=== PATIENT | male | born 1985 | race Caucasian/White ===

== ENCOUNTER 2021-03-11 09:22 | Emergency (ER) | payer SELFPAY ==
[2021-03-11 09:28] VITALS: BP 137/93; PULSE 82; RESP 18; TEMP 36.7; O2SAT 100
--- NOTE | 2021-03-11 09:43 | ED.WOUNDLAC ---
HPI - Wound/Laceration General Chief Complaint: Wound/Laceration Stated Complaint: tailbone cyst Time Seen by Provider: 03/11/21 09:28 Source: patient Mode of arrival: ambulatory Limitations: no limitations History of Present Illness HPI narrative: Patient is a 36 year old male who presents with abscess to buttocks. Patient reports a history of infected pilonidal cyst but reports have not had one for years . He reports increased pain and tenderness. He denies drainage. He reports fever last pm and taking ibuprofen with limited relief. He denies chills or body aches. He denies all other complaints at this time. Related Data Allergies Allergy/AdvReac Type Severity Reaction Status Date / Time No Known Allergies Allergy Verified 03/11/21 09:30 Review of Systems Review of Systems: Narrative: CONSTITUTIONAL: Denies fever, chills, or sweats. EYES: Denies visual changes, redness, or discharge. ENT: Denies rhinorrhea, congestion, sore throat, or otalgia. CARDIOVASCULAR: Denies chest pain, palpitations, or edema. RESPIRATORY: Denies cough or dyspnea. GASTROINTESTINAL: Denies abdominal pain, nausea, vomiting, or diarrhea. GENITOURINARY: Denies dysuria or hematuria. SKIN: Abscess to upper buttocks MUSCULOSKELETAL: Denies back pain, joint pain, or myalgia. NEUROLOGIC: Denies headache, numbness, dizziness, or weakness. PSYCHIATRIC: Denies anxiety or depression. [facility] Past Medical History Medical History (Updated 03/11/21 @ 10:46 by HARPREET Khan) Pilonidal abscess Surgical History Surgical History (Updated 03/11/21 @ 09:50 by HARPREET Khan) No significant past surgical history Family History Family History (Updated 03/11/21 @ 09:50 by HARPREET Khan) Other Breast cancer Social History Social History (Updated 03/11/21 @ 09:50 by HARPREET Khan) Smoking status: Current every day smoker Tobacco type: cigarettes Alcohol intake: current Alcohol use details: occasional Substance use: never Living arrangements: with family Occupation/Education: occupation Gender identity (if verbalized by the patient): Male Comments At the time of signature, I have reviewed and agree with nursing past medical, surgical, social, and family history unless otherwise noted. Please see nursing chart for further information. There is no relevant family history pertinent to the presenting complaint. Exam Narrative: Exam Narrative: GENERAL: Well-appearing, well-nourished, and in no acute distress. HEAD: Normocephalic, atraumatic. EYES: EOMI. No redness or drainage. Conjunctiva are normal. ENT: Mucous membranes pink and moist. CHEST: No respiratory distress. Clear to auscultation. HEART: Regular rate and rhythm. No murmur appreciated. Normal peripheral pulses. EXTREMITIES: Normal range of motion. No edema. SKIN: tender, fluctuant mass near top of the cleft. erythema noted, approximately 10 x 6 cm, no drainage noted NEURO: No focal deficits. Alert and oriented x3. Gait steady. PSYCH: Normal affect. No signs of depression or anxiety. Course Vital Signs Vital signs: Vital Signs Temperature 36.7 C 03/11/21 09:28 Pulse Rate 82 03/11/21 09:28 Respiratory Rate 18 03/11/21 09:28 Blood Pressure 137/93 H 03/11/21 09:28 Pulse Oximetry 100 03/11/21 09:28 Temperature 36.7 C 03/11/21 09:28 Pulse Rate 82 03/11/21 09:28 Respiratory Rate 18 03/11/21 09:28 Blood Pressure 137/93 H 03/11/21 09:28 Pulse Oximetry 100 03/11/21 09:28 Procedures Abscess I/D other: Date of Incision: 03/11/21 Time of Incision: 10:31 Sedation/analgesia: none Local Anesthetic: lidocaine 1% Amount of anesthesia used (mL): 9 Technique: incised with #11 blade Amount of fluid expressed (mL): 20 Irrigation: Yes Packing used?: plain I&D Results: Pus Abcess I&D Additional Comments: Pilonidal abscess drained, flushed
[2021-03-11 09:52] LABS: Basophils Absolute Auto 0.1 K/mm3 (0.0-0.1); Basophils Percent Auto 0.4 % (0.2-1.2); Eosinophils Absolute Auto 0.3 K/mm3 (0-0.3); Eosinophils Percent Auto 2.1 % (0-4.4); Hematocrit 44.2 % (42.0-52.0); Hemoglobin 15.2 g/dL (14.0-18.0); Immature Granulocyte Absolute 0.03 K/mm3 (0.00-0.031); Immature Granulocyte Percent A 0.2 % (0-0.5); Lymphocytes Percent Auto 7.5 % (18.3-44.2); Mean Corpuscular HGB Conc 34.4 g/dl (32-36); Mean Corpuscular Hemoglobin 32.4 pg (26-34); Mean Corpuscular Volume 94.2 fl (80-100); Mean Platelet Volume 10.7 fl (7.4-10.4); Monocytes Absolute Auto 1.2 K/mm3 (0.1-0.6); Monocytes Percent Auto 9.6 % (2.6-8.5); Neutrophils Absolute Auto 9.6 K/mm3 (1.3-6.7); Neutrophils Percent Auto 80.2 % (45.5-73.1); Platelet Count Result 215 k/mm3 (150-375); Red Blood Count 4.69 M/mm3 (4.6-6.20); Red Cell Distribution Width 11.9 % (11.5-14.5)
[2021-03-11 10:01] LABS: Lactic Acid Reflex 1.1 mmol/L (0.7-2.1)
[2021-03-11 10:03] LABS: Prothrombin Time 13.7 Seconds (11.1-14.7)
[2021-03-11 10:04] LABS: Partial Thromboplastin Time 32.2 SECONDS (22.3-36.8)
[2021-03-11 10:18] LABS: Alanine Aminotransferase 15 U/L (4-50); Albumin Level 3.9 g/dL (3.5-5.1); Alkaline Phosphatase 78 U/L (38-126); Anion Gap 5 mmol/L (8-16); Aspartate Amino Transferase 23 U/L (17-59); Bilirubin,Total 1.4 mg/dL (0.2-1.3); Blood Urea Nitrogen 8 mg/dL (9-20); CRP 6.7 mg/dL (<1.0); Calcium 9.1 mg/dL (8.4-10.2); Carbon Dioxide 28 mmol/L (22-30); Chloride 104 mmol/L (98-107); Estimated CRCL calculation 167 ml/min; Estimated Glomerular Filt Rate > 60; Glucose 117 mg/dL (75-110); Potassium 4.2 mmol/L (3.4-5.0); Sodium 137 mmol/L (137-145)
--- NOTE | 2021-03-11 10:55 | PC.NURSE ---
wound packed by PA. dressed with telfla and 4x4
[2021-03-11 11:33] VITALS: BP 118/75; PULSE 78; RESP 16; O2SAT 100
== END 2021-03-11 11:34 | disposition home or self-care (01) ==
PROVIDERS: Emergency Provider Nurse Practitioner
DX: L05.01 Pilonidal cyst with abscess (principal); F17.210 Nicotine dependence, cigarettes, uncomplicated
CPT/HCPCS: 10080; 36415; 46050; 80053; 83605; 85025; 85610; 85730; 86140; 87040; 96365; 99283; J0690

== ENCOUNTER 2024-05-13 16:21 | Emergency (ER) | payer SELFPAY ==
--- NOTE | ~2024-05-13 | CT_ITS ---
EXAMINATION: CT abdomen pelvis wo con DATE: 05/13/2024 17:06 INDICATION: Flank pain hematuria evaluate for stone TECHNIQUE: Computed tomography (CT) of the abdomen and pelvis was performed without intravenous contr ast. Automated exposure control and iterative reconstruction technique were employed. The dose-length product was 1166.35 mGy-cm. COMPARISON: None. FINDINGS: Lower thorax: Unremarkable Liver: Normal. Biliary/Gallbladder: Gallbladder is normal. No bile duct dilation. Pancreas: No mass or duct dilation. Spleen: Normal. Adrenals:No mass. Kidneys: 11 mm indeterminate density left upper pole exophytic lesion. Multiple hemorrhagic/proteinac eous left renal cysts. 2 mm, nonobstructing left midpole calcification. Mild left hydronephrosis. GI tract: No small or large bowel dilation. Normal appendix. Mesentery/Peritoneum: No ascites, mass, or free air. Retroperitoneum: No mass. Pelvis: 6 mm calcification in the distal left ureter just proximal to the left UVJ. The urinary bladd er is mostly empty. Normal prostate.. Soft Tissues: Small fat-containing uncomplicated umbilical hernia. Bones: No acute osseous finding. IMPRESSION: 6 mm distal left ureteral stone causing mild obstructive uropathy. 11 mm, exophytic, indeterminate left upper pole renal lesion, recommend nonemergent but timely CT or MRI without and with contrast for further characterization. Reviewed, dictated and finalized at location K. IMPRESSION: 6 mm distal left ureteral stone causing mild obstructive uropathy. 11 mm, exophytic, indeterminate left upper pole renal lesion, recommend nonemer gent but timely CT or MRI without and with contrast for further characterizatio nMarcelina
[2024-05-13 16:21] VITALS: BP 170/103; PULSE 110; RESP 20; TEMP 36.4; O2SAT 99
--- NOTE | 2024-05-13 16:42 | ED.GENADULT ---
HPI - General Adult General Chief complaint: Urogenital-Male Stated complaint: difficulty urinating Time Seen by Provider: 05/13/24 16:25 History of Present Illness HPI narrative: Patient is a 39-year-old gentleman who presents emergency department chief complaint of difficulty urinating and discomfort in his abdomen the patient reports that he has had some blood in his urine on reports that noticed that he has had some dribbling with urination. Patient reports no prior history of kidney stones reports that had no problems with hematuria or urinary retention past Related Data Allergies Allergy/AdvReac Type Severity Reaction Status Date / Time No Known Allergies Allergy Verified 05/13/24 16:38 Review of Systems Review of Systems: A 10 system review of systems was completed on the patient and is negative except for what is stated in the HPI. Nursing and ancillary documentation was reviewed. PMFSH Past Medical History Medical History Pilonidal abscess Surgical History Surgical History No significant past surgical history Family History Family History Other Breast cancer Social History Social History Smoking status: Current every day smoker Tobacco type: cigarettes Alcohol intake: current Alcohol use details: occasional Substance use: never Living arrangements: with family Occupation/Education: occupation Gender identity (if verbalized by the patient): Male Exam Narrative: GENERAL: Well-appearing, well-nourished, and in no acute distress. HEAD: Normocephalic, atraumatic. EYES: PERRLA and EOMI. ENT: Nares clear, no rhinorrhea or epistaxis. Mucous membranes moist. NECK: Supple. CHEST: Clear to auscultation. No respiratory distress. HEART: Regular rate and rhythm. No murmur heard. Normal peripheral pulses. ABDOMEN: Soft, nontender, nondistended, normal active bowel sounds. EXTREMITIES: Normal range of motion. No edema. SKIN: Warm, dry, no rash. NEURO: No focal deficits. Alert and oriented x3. PSYCH: Normal mood and affect. Course Vital Signs Vital signs: Vital Signs Temperature 36.4 C 05/13/24 16:21 Pulse Rate 110 H 05/13/24 16:21 Respiratory Rate 20 05/13/24 16:21 Blood Pressure 170/103 H 05/13/24 16:21 Pulse Oximetry 99 05/13/24 16:21 Oxygen Delivery Room Air 05/13/24 16:21 Temperature 36.4 C 05/13/24 16:21 Pulse Rate 82 05/13/24 17:46 Respiratory Rate 17 05/13/24 17:46 Blood Pressure 163/99 H 05/13/24 17:46 Pulse Oximetry 98 05/13/24 17:46 Oxygen Delivery Room Air 05/13/24 16:21 Medical Decision Making MDM Narrative Medical decision making narrative: Differential diagnosis includes ureterolithiasis, urinary obstruction, Laboratory studies were obtained on the patient showed a white count 9.9 hemoglobin 13 point a electrolytes are within normal limits urinalysis showed greater than 100 rbc's and 51-[address] scan shows 6 mm stone as well as a 11 mm lesion in the kidney. The patient's pain is doing much better at this time the case was discussed with Urology the patient will be started on Toradol Flomax [place] and started on Bactrim the patient was instructed to return to the emergency department if he has worsening symptoms or spikes a fever. The patient should follow up with Urology in the clinic this week Vital Signs Vital Signs: Vital Signs Temperature 36.4 C 05/13/24 16:21 Pulse Rate 110 H 05/13/24 16:21 Respiratory Rate 20 05/13/24 16:21 Blood Pressure 170/103 H 05/13/24 16:21 Pulse Oximetry 99 05/13/24 16:21 Oxygen Delivery Room Air 05/13/24 16:21 Temperature 36.4 C 05/13/24 16:21 Pulse Rate 82 05/13/24 17:46 Respiratory Rate 17 0
[2024-05-13] MEDS: ONDANSETRON INJ 4 MG/2 ML VIAL IV PUSH (16:44)
[2024-05-13] MEDS: MORPHINE SULFATE (*CRX) 4 MG/ML INJ IV PUSH (16:44)
[2024-05-13 16:45] LABS: Basophils Absolute Auto 0.1 K/mm3 (0.0-0.1); Basophils Percent Auto 0.9 % (0.2-1.2); Eosinophils Absolute Auto 0.3 K/mm3 (0-0.3); Hematocrit 46.1 % (42.0-52.0); Hemoglobin 15.8 g/dL (14.0-18.0); Immature Granulocyte Absolute 0.02 K/mm3 (0.00-0.031); Immature Granulocyte Percent A 0.2 % (0-0.5); Lymphocytes Absolute Auto 2.23 K/mm3 (0.9-3.2); Lymphocytes Percent Auto 22.6 % (18.3-44.2); Mean Corpuscular HGB Conc 34.3 g/dl (32-36); Mean Corpuscular Hemoglobin 32.3 pg (26-34); Mean Corpuscular Volume 94.3 fl (80-100); Mean Platelet Volume 10.3 fl (7.4-10.4); Monocytes Absolute Auto 0.9 K/mm3 (0.1-0.6); Monocytes Percent Auto 9.3 % (2.6-8.5); Neutrophils Absolute Auto 6.3 K/mm3 (1.3-6.7); Platelet Count Result 229 k/mm3 (150-375); Red Blood Count 4.89 M/mm3 (4.6-6.20); Red Cell Distribution Width 13.1 % (11.5-14.5); White Blood Count 9.9 K/mm3 (4.5-10.0)
[2024-05-13] MEDS: SODIUM CHLORIDE 0.9% IV 1,000 ML 999 ML IV CONT (16:45)
[2024-05-13 16:56] LABS: Alanine Aminotransferase 35 U/L (6-50); Albumin Level 4.8 g/dL (3.5-5.1); Alkaline Phosphatase 80 U/L (38-126); Anion Gap 9 mmol/L (4-12); Aspartate Amino Transferase 44 U/L (17-59); Bilirubin,Total 0.8 mg/dL (0.2-1.3); Blood Urea Nitrogen 15 mg/dL (9-20); Calcium 9.2 mg/dL (8.4-10.2); Carbon Dioxide 26 mmol/L (22-30); Chloride 105 mmol/L (98-107); Estimated CRCL calculation 126 ml/min; Estimated Glomerular Filt Rate > 60; Glucose 144 mg/dL (65-110); Lipase 51 U/L (23-300); Potassium 3.4 mmol/L (3.4-5.0); Sodium 140 mmol/L (137-145)
[2024-05-13 17:07] LABS: Bacteria Urine None Seen /hpf; Need Manual Microscopic Reviewed; Non Pathogenic Casts 0-2; Squamous Epithelial Cell Urine Occasional /hpf (Few); WBC Urine 51-100 /hpf (0-3)
[2024-05-13 17:08] LABS: Appearance Urine Turbid (Clear); Bilirubin Urine 1+ (Negative); Blood Urine 3+ (Negative); Glucose Urine UA Negative (Negative); Ketones Urine Trace mg/dL (Negative); Leukocyte Esterase Ur 1+ LEU/UL (Negative); Nitrate Urine Negative (Negative); Protein Urine 3+ mg/dL (Negative); Specific Grav Ur 1.031 (1.001-1.035); pH Urine 5.5 (5.0-9.0)
[2024-05-13 17:09] LABS: Color Urine Red (Yellow); RBC Urine >100 /hpf (0-2)
[2024-05-13 17:10] LABS: Add Urine Microscopic? YES
[2024-05-13 17:46] VITALS: BP 163/99; PULSE 82; RESP 17; O2SAT 98
[2024-05-13] MEDS: SULFAMETHOXAZOLE/TRIMETHOPRIM 800/160 MG DS TABLET 1 TAB PO (18:14)
[2024-05-13] MEDS: TAMSULOSIN HCL 0.4 MG CAPSULE PO (18:14)
[2024-05-13] MEDS: KETOROLAC 15 MG/ML VIAL (*BKC) IV PUSH (18:14)
[2024-05-13 18:22] VITALS: BP 153/89; PULSE 82; RESP 19; O2SAT 100
== END 2024-05-13 18:23 | disposition home or self-care (01) ==
PROVIDERS: Emergency Provider Emergency Medicine
DX: N20.1 Calculus of ureter (principal); F17.210 Nicotine dependence, cigarettes, uncomplicated
CPT/HCPCS: 36415; 74176; 80053; 81001; 83690; 85025; 87077; 87086; 87088; 87181; 96361; 96374; 96375; 99284; A9270; J1885; J2270; J2405; J7030

== ENCOUNTER 2024-09-16 12:47 | Emergency (ER) | payer OTHER, SELFPAY ==
[2024-09-16 12:50] VITALS: BP 163/105; PULSE 90; RESP 18; TEMP 36.3; O2SAT 100
--- NOTE | 2024-09-16 13:46 | ED.GENADULT ---
HPI - General Adult General Chief complaint: Skin/Abscess/Foreign Body Stated complaint: swollen cyst on tailbone Time Seen by Provider: 09/16/24 13:19 History of Present Illness HPI narrative: 39 year male with history of pilonidal cyst presented to the emergency department for a recurrent pilonidal cyst. Patient states few days ago he began having increased swelling and was having drainage. Patient states just prior to arrival the drainage has decreased. Patient has had pilonidal cyst previously but denies ever seeing surgery for this. Patient has no medication allergies. Related Data Allergies Allergy/AdvReac Type Severity Reaction Status Date / Time No Known Allergies Allergy Verified 09/16/24 12:47 Review of Systems Review of Systems: All systems reviewed & are unremarkable except as noted in HPI and below PMFSH Past Medical History Medical History Pilonidal abscess Surgical History Surgical History No significant past surgical history Family History Family History Other Breast cancer Social History Social History Smoking status: Current every day smoker Tobacco type: cigarettes Alcohol intake: current Alcohol use details: occasional Substance use: never Living arrangements: with family Occupation/Education: occupation Gender identity (if verbalized by the patient): Male Exam Narrative: APPEARANCE: Well appearing, no pain, no distress, well-nourished. HEAD: normocephalic, atraumatic. EYES: PERRLA/EOMI, conjunctivae clear. NOSE: Normal no drainage EARS:TMS clear with good light reflex. THROAT: Pharynx clear, no exudate. NECK: Supple. No adenopathy, no masses. RESPIRATORY: Airway patent, respirations nonlabored. Clear to auscultation bilaterally, no rales, rhonchi, wheezing. CARDIOVASCULAR: Regular rate and rhythm without murmurs rubs or gallops. ABDOMINAL: Soft, nontender, nondistended, normal bowel sounds MUSCULOSKELETAL: Moves all extremities. Strength/ROM intact, No edema, No calf tenderness. NEURO: Alert. Cranial nerves II through XII intact. Good gait. Good coordination SKIN: Mild erythema and tenderness at type of gluteal cleft Course Vital Signs Vital signs: Vital Signs Temperature 97.4 F L 09/16/24 12:50 Pulse Rate 90 09/16/24 12:50 Respiratory Rate 18 09/16/24 12:50 Blood Pressure 163/105 H 09/16/24 12:50 Pulse Oximetry 100 09/16/24 12:50 Oxygen Delivery Room Air 09/16/24 12:50 Temperature 97.4 F L 09/16/24 12:50 Pulse Rate 90 09/16/24 12:50 Respiratory Rate 18 09/16/24 12:50 Blood Pressure 163/105 H 09/16/24 12:50 Pulse Oximetry 100 09/16/24 12:50 Oxygen Delivery Room Air 09/16/24 12:50 Medical Decision Making MDM Narrative Medical decision making narrative: 39-year-old male presenting to the emergency department for evaluation for draining pilonidal cyst. Patient had no active drainage the cyst at this time. Minimal changes to the overlying skin with only mild erythema, minimal tenderness to palpation, bedside ultrasound revealed no abscess amenable to drainage. Suspect the abscess did drain completely spontaneously. Patient will be started on antibiotics. Patient was also encouraged to have close follow-up with surgery. All questions concerns were addressed. Differential Diagnosis Differential Diagnosis: abscess, cellulitis, pilonidal cyst Vital Signs Vital Signs: Vital Signs Temperature 97.4 F L 09/16/24 12:50 Pulse Rate 90 09/16/24 12:50 Respiratory Rate 18 09/16/24 12:50 Blood Pressure 163/105 H 09/16/24 12:50 Pulse Oximetry 100 09/16/24 12:50 Oxygen Delivery Room Air 09/16/24 12:50 Temperature 97.4 F L 09/16/24 12:50 Pulse Rate 90 09/16/24 12:50 Respiratory Rate 18 09/16/24 12:50 Blood Pressure 163/105 H 09/16/24 12:50 Pulse Oximetry 100 09/16/24 12:50 Oxygen Delivery Room Air 09/16/24 12:50 Discharge Plan Discharge Clinical Impression: Pilonidal cyst Patient Disposition: Home, Self-Care Condition: Stable Instructions: Antibiotic Form, Pilonidal Cyst (ED) Additional Instructions: Warm compresses as directed. Antibiotics as directed until completed. Have close follow-up with surgery. If you have any worsening symptoms then please call or return to the emergency department. Prescriptions: New clindamycin HCl 300 mg capsule 300 mg PO Q6H 7 Days Qty: 28 0RF No Action cephalexin 500 mg capsule 500 mg PO Q6H 5 Days Qty: 20 0RF sulfamethoxazole-trimethoprim 800-160 mg tablet 1 tablet PO Q12H 5 Days Qty: 10 0RF sulfamethoxazole-trimethoprim [Bactrim DS] 800-160 mg tablet 1 tablet PO Q12H 7 Days Qty: 14 0RF hydrocodone-acetaminophen 5-325 mg tablet 1 tablet PO Q6H PRN (Reason: pain) 3 Days Qty: 12 0RF tamsulosin [Flomax] 0.4 mg capsule 0.4 mg PO DAILY Qty: 20 0RF ondansetron 4 mg tablet,disintegrating 4 mg PO Q8H PRN (Reason: nausea and vomiting) Qty: 10 0RF ketorolac 10 mg tablet 10 mg PO Q8H PRN (Reason: pain) 5 Days Qty: 15 0RF Follow-up/Referrals: Mónica Cardona MD [Physician] - PHYSICIAN,[employer] [Primary Care Provider] -
== END 2024-09-16 14:06 | disposition home or self-care (01) ==
PROVIDERS: Emergency Provider Emergency Medicine
DX: L05.91 Pilonidal cyst without abscess (principal); F17.210 Nicotine dependence, cigarettes, uncomplicated
CPT/HCPCS: 99283